=== PATIENT | female | born 1990 | race Caucasian/White ===

== ENCOUNTER 2021-10-02 05:27 | Inpatient (IN) ==
[2021-10-02] MEDS ORDERED: TRANEXAMIC ACID 1,000 MG in SODIUM CHLORIDE 0.9% 100 ML IV PRN (05:40)
[2021-10-02] MEDS ORDERED: CARBOPROST TROMETHAMINE 250 MCG/ML AMP IM PRN (05:40)
[2021-10-02] MEDS ORDERED: CLINDAMYCIN INJ 900 MG/50 ML PREMIX IV ONE (05:40)
[2021-10-02] MEDS ORDERED: OXYTOCIN/LR 20 UNIT/1,000 ML BAG IV ONE ×3 (05:40→15:14)
[2021-10-02] MEDS ORDERED: CITRIC ACID/SODIUM CITRATE 30 ML UDCUP PO ONE (05:40)
[2021-10-02] MEDS ORDERED: FAMOTIDINE 20 MG/2 ML VIAL IV ONE (05:40)
[2021-10-02] MEDS ORDERED: METHYLERGONOVINE 0.2 MG/1 ML AMP IM PRN (05:40)
[2021-10-02] MEDS ORDERED: miSOPROStoL 200 MCG TABLET RECTAL PRN (05:40)
[2021-10-02] MEDS: LACTATED RINGERS 1,000 ML IV SCH ×2 (06:03→07:09)
[2021-10-02 06:17] LABS: Basophils # 0.1 10*3/uL (0.0-0.2); Basophils % 0.6 % (0.0-0.8); Eosinophils # 0.1 10*3/uL (0.0-0.87); Eosinophils % 1.3 % (0.00-10.9); Hematocrit 36.8 VOL% (35.7-47.0); Hemoglobin 11.4 GM/DL (12.0-16.0); Immature Granulocytes % 0.3 %; Immature Granulocytes Absolute 0.03 #; Lymphocytes # 2.1 10*3/uL (1.4-4.0); Lymphocytes % 23.4 % (21.3-54.2); Mean Corpuscular Volume 80.7 FL (87-102); Mean Platelet Volume 11.2 FL (9.6-12.0); Monocytes # 0.5 10*3/uL (0.11-0.8); Monocytes % 5.1 % (1.7-12.7); Neutrophils % 69.3 % (38.7-73.9); Platelet Count 235 T/CUMM (130-400); Red Blood Count 4.56 MC/CUMM (3.8-5.5); Red Cell Distribution Width 14.4 % (9.3-17.3); White Blood Count 8.8 T/CUMM (4-12)
[2021-10-02] MEDS ORDERED: BUPIVACAINE MPF 0.5% 30 ML VIAL ONE (06:36)
[2021-10-02] MEDS ORDERED: PHENYLEPHRINE 1 MG/10 ML SYRINGE IV ONE ×3 (06:36→08:23)
[2021-10-02] MEDS ORDERED: ONDANSETRON 4 MG/2 ML VIAL ONE (06:36)
[2021-10-02] MEDS ORDERED: buprenorphine HCL 0.3 MG/ML VIAL ONE (06:37)
[2021-10-02] MEDS ORDERED: miSOPROStoL 200 MCG TABLET ONE (06:58)
[2021-10-02] MEDS ORDERED: SODIUM CHLORIDE 0.9% 0 ML IV ONE (06:58)
[2021-10-02] MEDS ORDERED: TRANEXAMIC ACID 1,000 MG/10 ML VIAL ONE (06:58)
[2021-10-02] MEDS ORDERED: METHYLERGONOVINE 0.2 MG/1 ML AMP ONE (06:59)
[2021-10-02] MEDS ORDERED: CARBOPROST TROMETHAMINE 250 MCG/ML AMP IM ONE (06:59)
[2021-10-02] MEDS ORDERED: KETOROLAC 30 MG/1 ML VIAL ONE (08:04)
[2021-10-02] MEDS ORDERED: ACETAMINOPHEN INJ 1,000 MG/100 ML VIAL IV ONE (08:04)
[2021-10-02 08:37] LABS: Bacteria,Urine Occasional /HPF (Few); Mucus,Urine Moderate /LPF (Occasional); RBC,Urine 2 /HPF (0-4); Squamous Epithelial Cell,Urine Occasional /HPF (0-10)
[2021-10-02 08:38] LABS: Bilirubin,Urine Negative (Negative); Blood, Urine Negative (Negative); Glucose,Urine (UA) Negative (Negative); Ketones,Urine Negative (Negative); Nitrite,Urine Negative (Negative); Protein,Urine 100 mg/dL (Negative); Urine Appearance Clear (Clear); Urine Color Yellow (Yellow); Urine Specific Gravity >= 1.030 (1.001-1.035); Urine Urobilinogen 0.2 eU/dL (<2.0)
[2021-10-02 08:39] LABS: Cord Arterial Blood HCO3 20.3 MMOL/L
[2021-10-02 08:42] LABS: Cord Venous Blood HCO3 22.6 MMOL/L; Cord Venous Blood PCO2 54.5 MMHG; Cord Venous Blood PO2 28.6
[2021-10-02] MEDS ORDERED: RHO(D) IMMUNE GLOBULIN 300 MCG SYRINGE IM ONE (15:14)
[2021-10-02] MEDS ORDERED: MEASLES/MUMPS/RUBELLA VACCINE 0.5 ML VIAL SUBCUT ONE (15:14)
[2021-10-02] MEDS ORDERED: DIPH/TET/ACEL PERT BOOSTER VACCINE 0.5 ML VIAL IM ONE (15:14)
[2021-10-02] MEDS ORDERED: WITCH HAZEL PADS 100/JAR TOP PRN (15:14)
[2021-10-02] MEDS ORDERED: ONDANSETRON 4 MG/2 ML VIAL IV PRN (15:14)
[2021-10-02] MEDS ORDERED: LANOLIN 50% CREAM 0.3 OZ TUBE TOP PRN (15:14)
[2021-10-02] MEDS ORDERED: HYDROCORTISONE 2.5% RECTAL CREAM 30 GM TUBE TOP PRN (15:14)
[2021-10-02] MEDS ORDERED: BISACODYL 10 MG SUPP RECTAL PRN (15:14)
[2021-10-02] MEDS ORDERED: ACETAMINOPHEN 325 MG TABLET PO PRN (15:14)
[2021-10-02] MEDS ORDERED: oxyCODONE/ACETAMINOPHEN 5-325 MG TABLET PO PRN (15:14)
[2021-10-02] MEDS ORDERED: BENZOCAINE 20%/MENTHOL 0.5% SPRAY 56 GM CAN TOP PRN (15:14)
[2021-10-02] MEDS ORDERED: GLUCAGON 1 MG VIAL IM PRN (15:36)
[2021-10-02] MEDS ORDERED: DEXTROSE 10% 250 ML BAG IV PRN (15:43)
[2021-10-02] MEDS: KETOROLAC 30 MG/1 ML VIAL IV SCH (15:57)
[2021-10-02] MEDS: CLINDAMYCIN INJ 900 MG/50 ML PREMIX IV SCH (15:58)
[2021-10-02] MEDS ORDERED: ACETAMINOPHEN 500 MG TABLET PO SCH (16:00)
[2021-10-02] MEDS: INSULIN REGULAR 100 UNIT/ML SUBCUT SCH (19:04)
[2021-10-02] MEDS: DOCUSATE SODIUM 100 MG CAPSULE PO SCH (22:31)
[2021-10-02] MEDS: LABETALOL 200 MG TABLET PO SCH (22:32)
[2021-10-03] MEDS: KETOROLAC 30 MG/1 ML VIAL IV SCH ×2 (00:12→09:03)
[2021-10-03] MEDS: CLINDAMYCIN INJ 900 MG/50 ML PREMIX IV SCH (00:13)
[2021-10-03] MEDS: ACETAMINOPHEN 500 MG TABLET PO SCH ×2 (00:13→09:02)
[2021-10-03 06:02] LABS: Basophils # 0.1 10*3/uL (0.0-0.2); Basophils % 0.6 % (0.0-0.8); Eosinophils # 0.1 10*3/uL (0.0-0.87); Eosinophils % 1.1 % (0.00-10.9); Hematocrit 30.9 VOL% (35.7-47.0); Hemoglobin 9.3 GM/DL (12.0-16.0); Immature Granulocytes % 0.5 %; Immature Granulocytes Absolute 0.04 #; Lymphocytes # 1.5 10*3/uL (1.4-4.0); Lymphocytes % 18.5 % (21.3-54.2); Mean Corpuscular HGB Conc 30.1 GM/DL (32-36); Mean Corpuscular Volume 81.3 FL (87-102); Mean Platelet Volume 11.8 FL (9.6-12.0); Monocytes # 0.4 10*3/uL (0.11-0.8); Monocytes % 5.5 % (1.7-12.7); Neutrophils % 73.8 % (38.7-73.9); Platelet Count 190 T/CUMM (130-400); Red Cell Distribution Width 14.7 % (9.3-17.3); White Blood Count 7.8 T/CUMM (4-12)
[2021-10-03] MEDS: MULTIVITAMIN (PRENATAL) TABLET PO SCH (09:00)
[2021-10-03] MEDS: LABETALOL 200 MG TABLET PO SCH ×2 (09:00→21:36)
[2021-10-03] MEDS: DOCUSATE SODIUM 100 MG CAPSULE PO SCH ×2 (09:26→21:36)
[2021-10-03] MEDS: INSULIN REGULAR 100 UNIT/ML SUBCUT SCH ×3 (12:12→21:35)
[2021-10-03] MEDS: oxyCODONE/ACETAMINOPHEN 5-325 MG TABLET PO PRN (17:03)
[2021-10-03] MEDS: IBUPROFEN 800 MG TABLET PO PRN (17:04)
[2021-10-03] MEDS: SIMETHICONE CHEW 80 MG TABLET PO PRN (17:48)
[2021-10-04] MEDS: IBUPROFEN 800 MG TABLET PO PRN ×2 (00:38→10:39)
[2021-10-04] MEDS: oxyCODONE/ACETAMINOPHEN 5-325 MG TABLET PO PRN ×2 (00:40→10:38)
[2021-10-04] MEDS: INSULIN REGULAR 100 UNIT/ML SUBCUT SCH ×2 (07:48→11:45)
[2021-10-04] MEDS: SIMETHICONE CHEW 80 MG TABLET PO PRN (08:49)
[2021-10-04] MEDS: DOCUSATE SODIUM 100 MG CAPSULE PO SCH (08:50)
[2021-10-04] MEDS: MULTIVITAMIN (PRENATAL) TABLET PO SCH (08:50)
[2021-10-04] MEDS: LABETALOL 200 MG TABLET PO SCH (08:50)
[2021-10-04 09:19] VITALS: BP 123/73
== END 2021-10-04 11:50 | disposition home or self-care (01) | DRG 788 ==
LOC: N.LD 05:27 → N.OB 13:34
PROVIDERS: ADMIT Specialist; ATTEND Specialist
PROC: LDCSECT (ICD-10-PCS; 2021-10-02 07:30)